=== PATIENT | male | born 1955 | race Caucasian/White ===

== ENCOUNTER 2021-04-07 17:49 | Emergency (ER) | payer OTHER, MEDICARE ==
--- NOTE | 2021-04-07 20:02 | EDM.PDOC ---
<Fawn Ibrahim - Last Filed: 04/07/21 21:36> ED HPI GENERAL MEDICAL PROBLEM - General Chief Complaint: Flank Pain Stated Complaint: PAIN IN BACK AND CONSTIPATED, BLOOD IN URINE Time Seen by Provider: 04/07/21 19:50 Source of Information: Reports: Patient History Limitations: Reports: No Limitations - History of Present Illness INITIAL COMMENTS - FREE TEXT/NARRATIVE: The patient reports onset of symptoms earlier today including right-sided flank pain, hematuria and constipation. He reports having relief of his back pain after taking ibuprofen. He reports his constipation has since resolved after a BM after having taken a laxative. He denies fevers, chills, nausea, vomiting, diarrhea. He denies dysuria, increased urgency or frequency. He reports he has been making normal volumes of urine. No history of trauma. No history of renal stones. No recent weight loss. No history of cancer. Onset: Today Location: Reports: Back Quality: Reports: Ache Severity: Moderate Improves with: Reports: None Worsens with: Reports: None Associated Symptoms: Reports: Other (Hematuria) Right Flank Pain Score (Numeric/FACES): 2 - Related Data Allergies Allergy/AdvReac Type Severity Reaction Status Date / Time No Known Allergies Allergy Verified 04/07/21 19:38 Past Medical History Cardiovascular History: Reports: Hypertension Genitourinary History: Reports: Prostate Disorder - Infectious Disease History Infectious Disease History: Reports: Chicken Pox Social & Family History - Tobacco Use Tobacco Use Status *Q: Never Tobacco User - Caffeine Use Caffeine Use: Reports: Coffee, Soda - Recreational Drug Use Recreational Drug Use: No ED ROS GENERAL - Review of Systems Review Of Systems: See Below Constitutional: Denies: Fever, Chills, Fatigue, Night Sweats, Decreased Appetite, Weight Loss HEENT: Reports: No Symptoms Respiratory: Reports: No Symptoms Cardiovascular: Reports: No Symptoms Endocrine: Reports: No Symptoms GI/Abdominal: Reports: Constipation. Denies: Abdominal Pain, Hematemesis, Hematochezia, Melena, Stool Incontinence, Vomiting : Reports: Flank Pain, Hematuria, Urgency. Denies: Dysuria, Frequency, Incontinence, Urinary Retention Musculoskeletal: Reports: No Symptoms Skin: Reports: No Symptoms Neurological: Reports: No Symptoms Psychiatric: Reports: No Symptoms Hematologic/Lymphatic: Reports: No Symptoms Immunologic: Reports: No Symptoms ED EXAM, RENAL/ - Physical Exam Exam: See Below Exam Limited By: No Limitations General Appearance: Alert, WD/WN, No Apparent Distress Head: Atraumatic, Normocephalic Respiratory/Chest: No Respiratory Distress, Lungs Clear, Normal Breath Sounds, No Accessory Muscle Use, Chest Non-Tender Cardiovascular: Normal Peripheral Pulses, Regular Rate, Rhythm, No Edema, No Gallop, No JVD, No Murmur, No Rub GI/Abdominal: Normal Bowel Sounds, Soft, Non-Tender, No Organomegaly, No Dis tention, No Abnormal Bruit, No Mass Back Exam: Normal Inspection, Full Range of Motion. No: CVA Tenderness (L), CVA Tenderness (R), Paraspinal Tenderness, Vertebral Tenderness Extremities: Normal Inspection, Normal Range of Motion, Non-Tender, Normal Capillary Refill, No Pedal Edema Neurological: Alert, Oriented, Normal Cognition, Normal Gait, No Motor/Sensory Deficits Psychiatric: Normal Affect, Normal Mood Skin Exam: Warm, Dry, Intact, Normal Color, No Rash Course - Re-Assessments/Exams Free Text/Narrative Re-Assessment/Exam: 04/07/21 21:[address] abdomen/pelvis which are significant for a 13 x 12 x 14 cm sized mass of the inferior pole of the right kidney concerning for renal cell cancer with hematoma. No evidence of hydronephrosis. He was recommended to follow-up with his PCP within 3-5 days. He understood. All questions answered. He remains vitally stable and is able to discharge to home. He was agreeable with the above plan. 04/07/21 21:12 04/07/21 21:29 Departure - Departure Time of Disposition: 21:14 Disposition: Home, Self-Care 01 Condition: Good Clinical Impression: Renal mass - Discharge Information *PRESCRIPTION DRUG MONITORING PROGRAM REVIEWED*: Not Applicable *COPY OF PRESCRIPTION DRUG MONITORING REPORT IN PATIENT [place]: Not Applicable Instructions: Renal Mass Referrals: PCP,None [Primary Care Provider] - Forms: ED Department Discharge Additional Instructions: Patient will need to follow-up with his Primary Care Physician within 3-5 days. He was provided with the Radiology report and CDROM of his CT scan completed today to bring to his Family Doctor. He will subsequently be referred to the Oncology team for his Right Renal mass. Tylenol as needed for pain. Avoid ASA, Ibuprofen, Motrin, Aleve to avoid increased bleeding. Sepsis Event Note (ED) - Evaluation Sepsis Screening Result: No Definite Risk <Jose Melton - Last Filed: 04/08/21 06:59> Course - Vital Signs Last Recorded V/S: Last Vital Signs Temp 99.1 F 04/07/21 21:33 Pulse 80 04/07/21 21:33 Resp 22 H 04/07/21 21:33 BP 169/94 H 04/07/21 21:33 Pulse Ox 97 04/07/21 21:33 - Orders/Labs/Meds Orders: Active Orders 24 hr Category Date Time Status CULTURE URINE [RM] Stat Lab 04/07/21 19:35 Received Labs: Laboratory Tests 04/07/21 04/07/21 04/07/21 Range/Units 19:35 20:09 20:09 WBC 13.9 H (5.0-10.0) 10^3/uL RBC 5.18 (4.6-6.2) 10^6/uL Hgb 14.5 (14.0-18.0) g/dL Hct 45.1 (40.0-54.0) % MCV 87.1 (80-100) fL MCH 28.0 (27.0-34.0) pg MCHC 32.2 L (33.0-35.0) g/dL Plt Count 198 (150-450) 10^3/uL Neut % (Auto) 77.2 H (42.2-75.2) % Lymph % (Auto) 16.1 L (20.5-50.1) % [place] % (Auto) 6.2 (2-8) % Eos % (Auto) 0.1 L (1.0-3.0) % Baso % (Auto) 0.4 (0.0-1.0) % Sodium 137 (136-145) mmol/L Potassium 3.8 (3.5-5.1) mmol/L Chloride 101 (98-107) mmol/L Carbon Dioxide 26 (21-32) mmol/L Anion Gap 13.8 H (7-13) mEq/L BUN 30 H (7-18) mg/dL Creatinine 1.18 (0.70-1.30) mg/dL Est Cr Clr Drug Dosing 65.76 mL/min Estimated GFR (MDRD) > 60 BUN/Creatinine Ratio 25.4 (No establ ref range) Glucose 110 H (70-99) mg/dL Calcium 8.7 (8.5-10.1) mg/dL Total Bilirubin 0.6 (0.2-1.0) mg/dL AST 22 (15-37) U/L ALT 41 (16-63) U/L Alkaline Phosphatase 60 (46-116) U/L Total Protein 7.7 (6.4-8.2) g/dL Albumin 3.8 (3.4-5.0) g/dL Globulin 3.9 Albumin/Globulin Ratio 1.0 Lipase 94 (73-393) U/L Urine Color Brown (YELLOW) Urine Appearance Cloudy (CLEAR) Urine pH 5.5 (5.0-9.0) Ur Specific [place] 1.020 (1.005-1.030) Urine Protein >=300 H (NEGATIVE) Urine Glucose (UA) 100 H (NEGATIVE) Urine Ketones 40 H (NEGATIVE) Urine Occult Blood Large H (NEGATIVE) Urine Nitrite Negative (NEGATIVE) Urine Bilirubin Large H (NEGATIVE) Urine Urobilinogen 4.0 H (0.2-1.0) mg/dL Ur Leukocyte Esterase Large H (NEGATIVE) Urine RBC Packed H (0-5) /HPF Urine WBC 10-20 H (0-5/HPF) /HPF Ur Epithelial Cells Rare (NOT SEEN) /HPF Urine Bacteria Moderate H (0-FEW/HPF) /HPF Urine Mucus Few H (NOT SEEN) /LPF Urine Yeast Few H (NOT SEEN) /HPF Meds: Medications Discontinued Medications Generic Name Dose Route Start Last Admin Trade Name Freq PRN Reason Stop Dose Admin Sodium Chloride 1,000 mls @ 999 mls/hr 04/07/21 20:26 04/07/21 20:34 Normal Saline IV 04/07/21 21:26 999 mls/hr .BOLUS ONE Administration - Re-Assessments/Exams Free Text/Narrative Re-Assessment/Exam: I saw and evaluated the patient. Discussed with resident and agree with residents findings and plan as documented in the residents note. Sepsis Event Note (ED) - Focused Exam Vital Signs: Vital Signs Temp Pulse Resp BP Pulse Ox 04/07/21 21:33 99.1 F 80 22 H 169/94 H 97 04/07/21 21:25 98.8 F 78 20 160/86 H 96 04/07/21 20:23 99.1 F 76 20 157/74 H 97 04/07/21 19:35 99.0 F 76 16 154/91 H 95
[2021-04-07] MEDS ORDERED: Sodium Chloride 0.9% 1,000 ML IV ONE (20:26)
[2021-04-07 20:35] LABS: ANION GAP 13.8 mEq/L (7-13); CHLORIDE,CL 101 mmol/L (98-107); SODIUM,NA 137 mmol/L (136-145)
--- NOTE | 2021-04-07 20:52 | CT ---
PROCEDURE INFORMATION: Exam: CT Abdomen And Pelvis Without Contrast Exam date and time: 04/07/2021 8:15 PM Age: 66 years old Clinical indication: Abdominal pain; Flank; Right; Additional info: Concern for renal stone, pyelo. HX of right flank TECHNIQUE: Imaging protocol: Computed tomography of the abdomen and pelvis without contrast. Radiation optimization: All CT scans at this facility use at least one of these dose optimization techniques: automated exposure control; mA and/or kV adjustment per patient size (includes targeted exams where dose is matched to clinical indication); or iterative reconstruction. COMPARISON: No relevant prior studies available. FINDINGS: Lungs: 1.3 cm noncalcified nodule in the left lower lobe. Small noncalcified subcentimeter nodules the observed in the the in right lower lobe. Liver: Normal. No mass. Gallbladder and bile ducts: Normal. No calcified stones. No ductal dilation. Pancreas: Normal. No ductal dilation. Spleen: Normal. No splenomegaly. Adrenal glands: Normal. No mass. Kidneys and ureters: 13 x 12 x 14 cm the mixed density mass arising from the inferior pole the right kidney highly suspicious for hypernephroma. Moderately distended right renal pelvis containing hyperdense material likely representing hemorrhage. Right ureter unremarkable. Stomach and bowel: Unremarkable. No obstruction. No mucosal thickening. Appendix: No evidence of appendicitis. Intraperitoneal space: Unremarkable. No free air. No significant fluid collection. Vasculature: Unremarkable. No abdominal aortic aneurysm. Lymph nodes: Unremarkable. No enlarged lymph nodes. Urinary bladder: Unremarkable as visualized. Reproductive: Unremarkable as visualized. Bones/joints: Unremarkable. No acute fracture. Soft tissues: Unremarkable. IMPRESSION: 1. Large mass arising from the right kidney most likely represents hypernephroma. 2. Distended right renal pelvis with intraluminal blood products. 3. Bilateral lower lobe nodules concerning for metastatic disease. COMMENTS: Consistent with the [employer]'s Incidental Findings Committee white paper (J Am Minerva Radiol 2018): Any incidental renal lesion less than 1 cm or classified as too small to characterize, or any incidental cystic renal lesion characterized as simple-appearing, is likely benign. No follow-up imaging is recommended for these lesions per consensus recommendations based on imaging criteria.
== END 2021-04-07 21:32 | disposition home or self-care (01) ==
LOC: DL.ED 17:49
DX: N28.89 Other specified disorders of kidney and ureter (principal); I10 Essential (primary) hypertension
CPT/HCPCS: 36415; 74176; 80053; 81001; 83690; 85025; 87086; 99284; J7030